=== PATIENT | female | born 1985 | race Caucasian/White ===

== ENCOUNTER 2022-05-14 22:21 | Emergency (ER) | payer MEDICAID ==
[~2022-05-14] VITALS: Ht 162.6 cm; Wt 96.6 kg
[~2022-05-14 22:21] MED LIST: IBUP-1574 PO; ONDA4TAB59 PO
[2022-05-14 22:23] VITALS: BP 155/4
== END 2022-05-15 04:02 | disposition left against medical advice (07) ==
LOC: ER 22:21
DX: M79.10 Myalgia, unspecified site (principal); Z53.21 Procedure and treatment not carried out due to patient leaving prior to being seen by health care provider
CPT/HCPCS: 99281